=== PATIENT | male | born 1970 | race Caucasian/White ===

== ENCOUNTER 2023-07-17 20:46 | Emergency (ER) | payer OTHER ==
[2023-07-17 20:54] VITALS: BP 117/70; PULSE 80; RESP 18; TEMP 97.7; BMI 30.7
[2023-07-17] MEDS ORDERED: KETOROLAC TROMETHAMINE 30 MG/1 ML VIAL ONE (22:18)
[2023-07-17] MEDS: KETOROLAC TROMETHAMINE 15 MG/ML VIAL IM ONE (22:23)
== END 2023-07-17 22:56 | disposition home or self-care (01) ==
LOC: JERFT 20:46
PROC: 3E0233Z Introduction of Anti-inflammatory into Muscle, Percutaneous Approach (ICD-10-PCS; principal; 2023-07-17)
DX: S50.01XA Contusion of right elbow, initial encounter (principal); W22.8XXA Striking against or struck by other objects, initial encounter
CPT/HCPCS: 73070-TC-RT-FY; 99284-25